=== PATIENT | female | born 1985 | race Two or more races ===

== ENCOUNTER 2018-07-25 11:48 | Emergency (ER) | payer SELFPAY ==
[~2018-07-25] VITALS: Ht 157.5 cm; Wt 72.6 kg
--- NOTE | 2018-07-25 12:27 | PHYS DOC ---
Adult General Chief Complaint Chief Complaint: VAGINAL BLEEDING [facility] HPI Patient is a 33 year old F who presents for vaginal bleeding. She has a had a pos test the last three days. Yesterday she started bleeding. LMP May 25. She is also having lower abd cramping. History obtained via healthcare interpreter phone. Review of Systems Review of Systems Constitutional: Denies fever or chills Eyes: Denies change in visual acuity, redness, or eye pain HENT: Denies nasal congestion or sore throat Respiratory: Denies cough or shortness of breath Cardiovascular: No additional information not addressed in HPI GI: Denies abdominal pain, nausea, vomiting, bloody stools or diarrhea : Denies dysuria or hematuria Musculoskeletal: Denies back pain or joint pain Integument: Denies rash or skin lesions Neurologic: Denies headache, focal weakness or sensory changes All other systems were reviewed and found to be within normal limits, except as documented in this note. Allergies Allergies Allergies Coded Allergies Type Severity Reaction Last Updated Verified No Known Drug Allergies 07/25/18 No Physical Exam Physical Exam Constitutional: Well developed, well nourished, no acute distress, non-toxic appearance. HENT: Normocephalic, atraumatic, bilateral external ears normal, oropharynx moist, no oral exudates, nose normal. Eyes: EOMI, conjunctiva normal, no discharge. Neck: Normal range of motion, no tenderness, supple, no stridor. Cardiovascular: Heart rate regular rhythm, no murmur Lungs & Thorax: Bilateral breath sounds clear to auscultation Abdomen: Diffuse lower abd tenderness Skin: Warm, dry, no erythema, no rash. Back: No tenderness, no CVA tenderness. Extremities: No tenderness, no cyanosis, no clubbing, ROM intact, no edema. Pelvic exam: Minimal bleeding, os closed, cervix unremarkable, no ovarian tenderness, no CMT Neurologic: Alert and oriented X 3, normal motor function, normal sensory function, no focal deficits noted. Current Patient Data Vital Signs Vital Signs Date Time Temp Pulse Resp B/P (MAP) Pulse Ox O2 Delivery O2 Flow Rate FiO2 07/25/18 15:01 70 102/60 (74) 99 Room Air 07/25/18 12:18 98.1 16 98.1 Lab Values Laboratory Tests Test 07/25/18 12:18 07/25/18 13:10 POC Urine HCG, Qualitative Borderline hcg level White Blood Count 6.3 x10^3/uL (4.0-11.0) Red Blood Count 4.25 x10^6/uL (3.50-5.40) Hemoglobin 13.1 g/dL (12.0-15.5) Hematocrit 39.0 % (36.0-47.0) Mean Corpuscular Volume 92 fL (79-100) Mean Corpuscular Hemoglobin 31 pg (25-35) Mean Corpuscular Hemoglobin Concent 34 g/dL (31-37) Red Cell Distribution Width 13.2 % (11.5-14.5) Platelet Count 202 x10^3/uL (140-400) Neutrophils (%) (Auto) 49 % (31-73) Lymphocytes (%) (Auto) 31 % (24-48) Monocytes (%) (Auto) 5 % (0-9) Eosinophils (%) (Auto) 14 % (0-3) H Basophils (%) (Auto) 1 % (0-3) Neutrophils # (Auto) 3.0 x10^3uL (1.8-7.7) Lymphocytes # (Auto) 2.0 x10^3/uL (1.0-4.8) Monocytes # (Auto) 0.3 x10^3/uL (0.0-1.1) Eosinophils # (Auto) 0.9 x10^3/uL (0.0-0.7) H Basophils # (Auto) 0.1 x10^3/uL (0.0-0.2) Maternal Serum HCG Beta Subunit 18 mIU/mL (0-5) H Laboratory Tests 07/25/18 13:10 EKG EKG [] Radiology/Procedures Radiology/Procedures [] Course & Med Decision Making Course & Med Decision Making Pertinent Labs and Imaging studies reviewed. (See chart for details) 33 y/o F presents for lower abd cramping and vaginal bleeding, pos test. Pelvic exam reveals minimal vaginal bleeding, minimal tenderness, cervix is closed. Quant 18. US report as above. Discussed case with Dr. Montes De Oca who recs cipro for possible salpingitis, follow up on Monday for repeat quant. I discussed all results with pt in detail with use of healthcare interpreter phone. She verbalizes understanding and agreement. 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 She understands the extreme importance of follow up on for repeat labs. Donte Disclaimer Donte Disclaimer This electronic medical record was generated, in whole or in part, using a voice recognition dictation system. Departure Departure Impression: Primary Impression: Threatened miscarriage in early Disposition: HOME, SELF-CARE Admitting Physician: Other Condition: STABLE Referrals: ARMINDA MONTES DE OCA MD Patient Instructions: Ectopic , [id number], Miscarriage, [id number] Scripts Ciprofloxacin Hcl (CIPRO) 500 Mg Tablet 1 TAB PO BID for 10 Days, #20 TAB Prov: RONNY BINGHAM MD 07/25/18 RONNY BINGHAM MD July 25, 2018 12:27
[2018-07-25 13:23] LABS: BASO # 0.1 x10^3/uL (0.0-0.2); BASO % 1 % (0-3); EOS # 0.9 x10^3/uL (0.0-0.7); EOS % 14 % (0-3); HEMOGLOBIN 13.1 g/dL (12.0-15.5); LYMPH % 31 % (24-48); MEAN CORPUSCULAR HEMOGLOBIN 31 pg (25-35); MEAN CORPUSCULAR HGB CONC 34 g/dL (31-37); MEAN CORPUSCULAR VOLUME 92 fL (79-100); MONO # 0.3 x10^3/uL (0.0-1.1); MONO % 5 % (0-9); NEUT % 49 % (31-73); PLATELET COUNT 202 x10^3/uL (140-400); RED BLOOD COUNT 4.25 x10^6/uL (3.50-5.40); RED CELL DISTRIBUTION WIDTH 13.2 % (11.5-14.5); WHITE BLOOD COUNT 6.3 x10^3/uL (4.0-11.0)
--- NOTE | 2018-07-25 13:36 | RAD ---
Examination: OB <14 WKS W/TV History: Vaginal bleeding Comparison/Correlation: None Findings: OB ultrasound exam was performed. Transabdominal and transvaginal technique utilized. Transvaginal technique utilized to better assess the adnexal structures. Uterus measures 9.5 cm x 6.7 cm x 4.9 cm. Nabothian cysts are present. Myometrium is normal. Endometrial thickness is 0.7 cm. There is no pelvic free fluid. No intrauterine gestational sac. Right adnexa measures 3 cm x 2.5 cm to center. Left adnexa measures 2.8 cm x 2.8 cm x 2.2 cm. No adnexal masses or pelvic free fluid. Adnexal follicles are physiologic in appearance. Normal ovarian flow is present with no evidence of torsion. There is a right-sided tubular structure which appears to be circumferentially thickened and contiguous with the uterus. No fluid within it. Impression: No intrauterine gestation. No adnexal mass. If ectopic gestation is a persistent concern, further evaluation with serial beta hCG and possibly follow-up ultrasound recommended. Circumferential wall thickening of what appears to represent the right fallopian tube. Correlate for possibility of salpingitis. No other inflammatory findings however. Electronically signed by: Javier Anders MD (07/25/2018 1:33 PM) [id number]
[2018-07-25 15:01] VITALS: BP 102/60
[2018-07-25] MEDS ORDERED: CIPR500T94 PO (15:36)
== END 2018-07-25 15:43 | disposition home or self-care (01) ==
LOC: ER 11:48
DX: O20.0 Threatened abortion (principal); Z3A.00 Weeks of gestation of pregnancy not specified
CPT/HCPCS: 36415; 76801; 76817; 81025; 84702; 85025; 86900; 86901; 99285-25